=== PATIENT | female | born 1995 | race Caucasian/White ===

== ENCOUNTER 2017-03-20 00:22 | Observation (INO) | payer MEDICAID ==
[~2017-03-20] VITALS: Ht 170.2 cm; Wt 127.0 kg
[2017-03-20] MEDS ORDERED: PNV1TABL76 MT (00:30)
== END 2017-03-20 03:00 | disposition home or self-care (01) ==
LOC: L&D 00:22
PROVIDERS: ADMIT Specialist; ATTEND Specialist
DX: O26.853 Spotting complicating pregnancy, third trimester (principal); O62.9 Abnormality of forces of labor, unspecified; Z3A.38 38 weeks gestation of pregnancy
CPT/HCPCS: 99281; G0378